=== PATIENT | male | born 1985 | race Caucasian/White ===

== ENCOUNTER 2016-09-06 12:25 | Emergency (ER) | payer SELFPAY ==
[~2016-09-06] VITALS: Ht 172.7 cm; Wt 79.5 kg
[~2016-09-06 12:25] MED LIST: CEPH500C3 PO; DICL75 PO
[2016-09-06 12:27] VITALS: BP 122/66; PULSE 100; RESP 20; TEMP 97.6; O2SAT 97
--- NOTE | 2016-09-06 12:50 | PD ---
HPI Chief Complaint: Injury Time Seen by Provider: 12:50 Travel History International Travel<30 days: No Contact w/Intl Traveler<30days: No Traveled to known affect area: No History of Present Illness HPI 31-year-old male presents emergency Department with complaint of left ankle and foot pain and swelling that he woke up with this morning. Unknown injury. He does have rashes to bilateral lower legs that he says he's been itching and the rash has been there for a year. He says they were from wearing socks last bike week and the socks getting wet and causing the rash. 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 Denies paresthesias, loss of sensation to the affected extremity. Denies fever, chills, nausea, vomiting. Has been using a crutch for support. Took a Percocet 10 mg this morning for pain; Percocet was his family members. History of IV drug use; last used week ago. No known allergies. No other medical complaints. No other modifying factors or associated signs and symptoms. PFSH Social History Tobacco Use: Yes Substance Use: Yes (IV drug use) Allergies-Medications (Allergen,Severity, Reaction): Coded Allergies: No Known Allergies (Unverified , 09/06/16) Reported Meds & Prescriptions Reported Meds & Active Scripts Active Nystatin Topical (Nystatin) 100,000 unit/gm Cream 1 Applic TOPICAL Q6HR PRN Bactrim DS (Sulfamethoxazole-Trimethoprim) 800-160 Mg Tab 1 Tab PO BID 10 Days Keflex (Cephalexin) 500 Mg Cap 500 Mg PO Q6H 10 Days Ibuprofen 800 Mg Tab 800 Mg PO Q6HR PRN Review of Systems Except as stated in HPI: all other systems reviewed are Neg Physical Exam Narrative GENERAL: Well-nourished, well-developed male patient, in no acute distress SKIN: Warm and dry. Erythemic rash is noted to bilateral lower extremities; without signs of infection; consistent with skin yeast infection. HEAD: Atraumatic. Normocephalic. EYES: Pupils equal and round. No scleral icterus. No injection or drainage. ENT: Mucosa pink and moist. Airway patent. NECK: Trachea midline. CARDIOVASCULAR: Regular rate. RESPIRATORY: No accessory muscle use. GASTROINTESTINAL: Flat. MUSCULOSKELETAL: Left ankle and foot are edematous and without erythema; there is ecchymosis noted to the lateral aspect of the heel area; no obvious deformity ; with tenderness on palpation to bilateral ankle areas and dorsal aspect of the foot. Left lower extremity is supple and non-tense with 2+ pedal pulse and sensory intact. No obvious deformities. No clubbing. No cyanosis. NEUROLOGICAL: Awake and alert. Oriented 3. No obvious cranial nerve deficits. Motor grossly within normal limits. Normal speech. PSYCHIATRIC: Appropriate mood and affect; insight and judgment normal. Data Data Last Documented VS Vital Signs Date Time Temp Pulse Resp B/P Pulse Ox O2 Delivery O2 Flow Rate FiO2 09/06/16 12:27 97.6 100 20 122/66 97 Room Air Orders Ankle, Complete ([id number]) (09/06/16 12:50) Foot, Complete ([id number]) (09/06/16 12:50) Ice/Cold Pack (09/06/16 12:50) Tetanus/Diphtheria Tox Adult (Tetanus/Di (09/06/16 13:00) Splint Or Brace Apply/Monitor (09/06/16 13:52) Crutches (09/06/16 13:52) MDM Medical Decision Making Medical Screen Exam Complete: Yes Emergency Medical Condition: Yes Medical Record Reviewed: Yes Differential Diagnosis Ankle sprain, ankle fracture, foot sprain, foot fracture, cellulitis Narrative Course 31-year-old male with left ankle and foot edema and pain that he woke up at this point. Unknown injury. He does have erythemic areas to bilateral lower legs that have been there for 1 year that seemed to be consistent with a skin yeast infection; all areas are without signs of infection. There is ecchymosis noted to the left lateral heel area. Patient has history of IV drug use and used last one week ago. He denies fever, chills, nausea, vomiting. He did take a non-prescribed Percocet for pain prior to arrival. 1345: Left ankle and foot x-ray concludes diffuse soft tissue swelling; No acute injury. I do not see signs of cellulitis but I will place patient on antibiotics secondary to history of IV drug use, areas of erythema and ecchymosis. Erythemic areas on bilateral lower extremities are consistent with yeast skin infection and I will prescribe nystatin cream. Ankle stirrup splint and Eric bandage applied. Crutches ordered and provided for support. Nystatin cream, Ibuprofen, Keflex, Bactrim prescribed for home. Patient verbalizes understanding and agreement with treatment plan. Patient is medically cleared and stable for discharge. Discussed reasons to return to the emergency department. Instructed patient to follow up with primary care provider. Patient agrees with treatment plan. The patients vital signs are stable and the patient is stable for outpatient follow-up and treatment. Patient discharged home, stable and in no acute distress. Diagnosis Primary Impression: Edema of left foot Additional Impressions: Edema of soft tissue of left ankle region Yeast infection of the skin Referrals: Primary Care Physician Patient Instructions: Ankle Sprain (ED), Cellulitis (ED), Edema (ED), General Instructions, Skin Yeast Infection (ED) Departure Forms: Tests/Procedures, Work Release Enter return to work date: September 14, 2016 Additional Instructions: Antibiotics as prescribed Tylenol or ibuprofen as directed and as needed for pain and inflammation Rest, ice, compress, and elevate extremity to decrease pain and inflammation Ankle Brace for support; Eric bandage for depression and support Crutches for support Avoid aggravating activity; increase activity as tolerated Follow-up with primary care provider Return to the emergency department immediately with worsening symptoms Med/Other Pt SpecificInfo: Prescription(s) given Scripts Nystatin Topical 100,000 unit/gm Cream1 Applic TOPICAL Q6HR PRN (RASH) #30 GM Ref 0 Prov:Ann Chavez 09/06/16 Sulfamethoxazole-Trimethoprim (Bactrim DS)800-160 Mg Tab1 Tab PO BID 10 Days Ref 0 Prov:Ann Chavez 09/06/16 Cephalexin (Keflex)500 Mg [id number] Mg PO Q6H 10 Days Ref 0 Prov:Ann Chavez 09/06/16 Ibuprofen 800 Mg [id number] Mg PO Q6HR PRN (PAIN) #30 TAB Ref 0 Prov:Ann Chavez 09/06/16 Disposition: 01 DISCHARGE HOME Condition: Stable Ann Chavez Sep 06, 2016 12:50
[2016-09-06] MEDS ORDERED: TETANUS/DIPHTHERIA TOXOID ADULT 0.5 ML VIAL IM ONE (13:00)
--- NOTE | 2016-09-06 13:24 | RADRPT ---
EXAM DATE/TIME: 09/06/2016 13:00 [facility] COMPARISON: No previous studies available for comparison. INDICATIONS : Pain and swelling left ankle, denies injury MEDICAL HISTORY : None. SURGICAL HISTORY : None. ENCOUNTER: Initial ACUITY: 1 day PAIN SCORE: 8/10 LOCATION: Left ankle FINDINGS: Three view exam was performed of the left ankle. The bony structures are in normal alignment. No ev idence of fracture or dislocation. The ankle is normally aligned. There is diffuse soft tissue swelli ng. No radiopaque foreign bodies are seen. Bony mineralization is normal. CONCLUSION: Diffuse soft tissue swelling. Juan Beltran MD on September 06, 2016 at 13:21 Board Certified Radiologist. This report was verified electronically.
--- NOTE | 2016-09-06 13:26 | RADRPT ---
EXAM DATE/TIME: 09/06/2016 12:59 [facility] COMPARISON: No previous studies available for comparison. INDICATIONS : Pain and swelling left foot, denies injury MEDICAL HISTORY : None. SURGICAL HISTORY : None. ENCOUNTER: Initial ACUITY: 1 day PAIN SCORE: 8/10 LOCATION: Left Foot FINDINGS: Three view examination of the left foot demonstrates no dislocation or fracture. There is soft tiss ue swelling. The tarsal bones appear intact. The interphalangeal and metatarsophalangeal joints are intact. The calcaneus is intact. Bony mineralization is normal. CONCLUSION: Soft tissue swelling. Juan Beltran MD on September 06, 2016 at 13:23 Board Certified Radiologist. This report was verified electronically.
[2016-09-06] MEDS ORDERED: IBUP800T23 PO (13:52)
[2016-09-06] MEDS ORDERED: BACT800T5 PO (13:52)
[2016-09-06] MEDS ORDERED: CEPH-460 PO (13:52)
[2016-09-06] MEDS ORDERED: NYST15T TOPICAL (13:54)
== END 2016-09-06 14:48 | disposition home or self-care (01) ==
LOC: NEPK 12:25
DX: M79.89 Other specified soft tissue disorders (principal); B37.2 Candidiasis of skin and nail; Z23 Encounter for immunization
CPT/HCPCS: 73610; 73630; 90471; 90714; 99283; E0113; L1906

== ENCOUNTER 2017-09-21 11:42 | Emergency (ER) | payer SELFPAY ==
[2017-09-21] MEDS ORDERED: SODIUM CHLORIDE 0.9% FLUSH 10 ML FLUSH IV FLUSH (12:30)
[2017-09-21 12:51] LABS: AUTOMATED NEUTROPHIL # 3.8 TH/MM3 (1.8-7.7); BASOPHIL % 0.6 % (0.0-2.0); EOSINOPHIL % 0.7 % (0.0-4.0); HEMATOCRIT 41.1 % (39.0-51.0); HEMO FLAGS DIFF FINAL; HEMOGLOBIN 14.4 GM/DL (13.0-17.0); LYMPH % 27.8 % (9.0-44.0); LYMPHOCYTE # 1.8 TH/MM3 (1.0-4.8); MEAN CELL VOLUME 91.4 FL (80.0-100.0); MEAN CORPUSCULAR HGB CONC 35.1 % (32.0-36.0); MEAN PLATELET VOLUME 7.1 FL (7.0-11.0); MONO % 12.8 % (0.0-8.0); MONOCYTE # 0.8 TH/MM3 (0-0.9); NEUT % 58.1 % (16.0-70.0); PLATELET COUNT 205 TH/MM3 (150-450); WHITE BLOOD COUNT 6.5 TH/MM3 (4.0-11.0)
[2017-09-21 13:08] LABS: BLOOD, URINE NEG (NEG); GLUCOSE,URINE NEG (NEG); KETONE, URINE 10 mg/dL (NEG); NITRITE,URINE NEG (NEG); URINE COLOR YELLOW (YELLW/STRAW); URINE LEUKOCYTE ESTERASE NEG (NEG)
[2017-09-21 13:09] LABS: AMORPHOUS SEDIMENT, URINE FEW; BACTERIA, URINE OCC /hpf; COMMENT (UR) CULT NOT INDICATED; CULTURE IF INDICATED CULT NOT INDICATED; MUCUS URINE MANY /lpf (OCC)
[2017-09-21 13:10] LABS: BILIRUBIN, URINE NEG (NEG)
[2017-09-21 13:20] LABS: ALBUMIN 4.3 GM/DL (3.4-5.0); ANION GAP 10 MEQ/L (5-15); AST (GOT) 71 U/L (15-37); BICARBONATE 25.9 MEQ/L (21.0-32.0); BLOOD UREA NITROGEN 7 MG/DL (7-18); CALCIUM 9.7 MG/DL (8.5-10.1); CHLORIDE 102 MEQ/L (98-107); CREATININE 0.68 MG/DL (0.60-1.30); GLOMERULAR FILTRATION RATE 133 ML/MIN (>89); GLUCOSE,RANDOM 134 MG/DL (74-106); LIPASE 157 U/L (73-393); POTASSIUM 3.6 MEQ/L (3.5-5.1); SODIUM (NA) 138 MEQ/L (136-145)
[2017-09-21 13:23] LABS: ALKALINE PHOSPHATASE 127 U/L (45-117); ALT (GPT) 73 U/L (12-78); TOTAL BILIRUBIN ADULT 1.7 MG/DL (0.2-1.0); TOTAL PROTEIN 10.6 GM/DL (6.4-8.2)
[2017-09-21] MEDS: IOHEXOL 350 MG/ML 10 ML VIAL (for RAD DIAG) IVCONTRAST (13:57)
== END 2017-09-21 14:53 | disposition home or self-care (01) ==
LOC: NEPD 11:42
DX: S30.1XXA Contusion of abdominal wall, initial encounter (principal); W19.XXXA Unspecified fall, initial encounter
CPT/HCPCS: 74177; 80053; 81001; 83690; 85025; 99284